=== PATIENT | female | born 1990 | race Two or more races ===

== ENCOUNTER 2022-11-30 09:30 | Outpatient (CLI) | payer OTHER | END 2022-11-30 09:44 | disposition home or self-care (01) | LOC: SONOGRAMA 09:30 | PROVIDERS: ATTEND Obstetrics & Gynecology Reproductive Endocrinology | DX: N80.00 Endometriosis of the uterus, unspecified (principal); N80.209 Endometriosis of unspecified fallopian tube, unspecified depth; N80.30 Endometriosis of pelvic peritoneum, unspecified; N80.109 Endometriosis of ovary, unspecified side, unspecified depth; N93.9 Abnormal uterine and vaginal bleeding, unspecified ==